=== PATIENT | male | born 1960 | race Caucasian/White ===

== ENCOUNTER → 2020-11-26 13:46 | Outpatient (CLI) | payer MEDICARE, SELFPAY ==
--- NOTE | 2020-11-26 13:57 | DI.RAD.S_ITS ---
PROCEDURE: XR ACUTE ABDOMEN SERIES INDICATIONS: abdominal pain (constipation) TECHNIQUE: One view chest and two views of the abdomen were acquired. COMPARISON: None. FINDINGS: Surgical changes and devices: None. Chest: Lungs are clear. Heart size is normal. No pleural effusions. No pneumoperitoneum. Abdomen: Moderate stool within the right colon; otherwise bowel is normal. No suspicious calcifications. Visualized solid organ contours appear normal. Bones: No suspicious bony lesions. IMPRESSION: No acute process seen within the chest or abdomen. Of note, there is a moderate amount of stool within the right colon. Dictated by: Mariano Gomez [facility] Interpreted: Joselin Dubon MD on 11/26/2020 at 16:48 Approved by: Joselin Dubon M.D. on 11/26/2020 at 17:06
== END ==
PROVIDERS: PCP Family Medicine; Referring Provider Registered Nurse; Visit Provider Registered Nurse
DX: R10.9 Unspecified abdominal pain (principal); K59.00 Constipation, unspecified
CPT/HCPCS: 74022

== ENCOUNTER → 2021-03-18 13:24 | Outpatient (CLI) | payer MEDICARE, SELFPAY ==
--- NOTE | 2021-03-18 13:27 | DI.RAD.S_ITS ---
PROCEDURE: XR ACUTE ABDOMEN SERIES INDICATIONS: abdominal pain TECHNIQUE: One view chest and two views of the abdomen were acquired. COMPARISON: [facility], , XR ACUTE ABDOMEN SERIES, 11/26/2020, 14:00. FINDINGS: Surgical changes and devices: None. Chest: Lungs are clear. Heart size is normal. No pleural effusions. No pneumoperitoneum. Abdomen: Bowel gas pattern is nonspecific. There are scattered small bowel fluid levels. No suspicious calcifications. Visualized solid organ contours appear normal. Bones: No suspicious bony lesions. IMPRESSION: Nonspecific gas pattern with scattered small bowel fluid levels. This could represent ileus. Developing partial small bowel obstruction cannot be excluded. Dictated by: Joselin Dubon M.D. on 03/18/2021 at 14:26 Approved by: Joselin Dubon M.D. on 03/18/2021 at 14:26
== END ==
PROVIDERS: PCP Family Medicine; Referring Provider Registered Nurse; Visit Provider Registered Nurse
DX: R10.9 Unspecified abdominal pain (principal); K59.00 Constipation, unspecified
CPT/HCPCS: 36415; 74022; 86003

== ENCOUNTER 2021-03-19 11:25 | Emergency (ER) | payer MEDICARE, SELFPAY ==
[2021-03-19 11:35] VITALS: BP 135/81; PULSE 96; RESP 18; TEMP 36.7; O2SAT 96; BMI 24.0
--- NOTE | 2021-03-19 11:42 | ED.ABDPAIN ---
HPI - Abdominal Pain General Chief Complaint: Abdominal Pain Stated Complaint: small bowel obstruction Time Seen by Provider: 03/19/21 11:29 Source: patient Mode of arrival: Ambulatory Limitations: no limitations History of Present Illness HPI narrative: 61M former smoker with history of abdominal cramps and prediabetes presents at the request of his PCP for evaluation of possible SBO. He has been having episodes of abdominal cramping particularly with eating for the past few months. He frequently will have loose stools and he states often times his cramping will build until he is able to have a bowel movement at which point improves. Additionally his pain, at least in the epigastrium is made worse with eating. He states that he has lost a taste for certain foods and very rarely drinks anymore as it just does not taste good. He has tried losing weight with some dietary changes but states that he has lost 30 lb in the past few months. He has had no fever or chills he denies any jaundice. Patient was seen by his primary care provider yesterday who did an acute abdominal series and sent him here for likely small bowel obstruction Related Data Home Medications Medication Instructions Recorded Confirmed amlodipine 10 mg tablet 10 mg PO DAILY 10/02/19 03/18/21 beclomethasone diprop (AQ) 42 mcg 1 spray NASAL DAILY PRN 10/02/19 03/18/21 (0.042 %) nasal spray bictegravir 50 mg-emtricitabine 1 tab PO DAILY 10/02/19 03/18/21 200 mg-tenofovir alafenam 25 mg tablet diphenhydramine HCl 25 mg capsule 25 mg PO BEDTIME 10/02/19 03/18/21 levothyroxine 137 mcg capsule 137 mcg PO DAILY 10/02/19 03/18/21 omeprazole 20 mg capsule,delayed 20 mg PO DAILY 10/02/19 03/18/21 release rosuvastatin 10 mg tablet 10 mg PO DAILY 10/02/19 03/18/21 Previous Rx's Medication Instructions Recorded lactulose 20 gram/30 mL oral 20 g PO BID PRN #1200 ml 11/27/20 solution ondansetron 4 mg PO TID-QID PRN #10 tab 03/19/21 Allergies Allergy/AdvReac Type Severity Reaction Status Date / Time No Known Drug Allergies Allergy Verified 11/26/20 13:29 Review of Systems Constitutional Constitutional: Denies chills, Denies fatigue, Denies fever(s), Denies frequent falls, Denies lethargy, Reports poor appetite and Denies weakness Eyes Eyes: Denies change in vision, Denies eye discharge, Denies irritation and Denies loss of vision ENT Ears, Nose, Mouth, and Throat: Denies change in voice, Denies dizziness, Denies neck pain, Denies sore throat and Denies throat swelling Cardiovascular Cardiovascular: Denies chest pain, Denies irregular heart rhythm, Denies lightheadedness, Denies palpitations, Denies dyspnea, Denies dyspnea on exertion and Denies orthopnea Respiratory Respiratory: Denies cough, Denies dyspnea, Denies dyspnea on exertion and Denies wheezing Gastrointestinal Gastrointestinal: Reports abdominal pain, Denies change in bowel habits, Reports diarrhea, Reports nausea and Denies vomiting Musculoskeletal Musculoskeletal: Denies neck pain and Denies numbness Integumentary/Breasts Skin/Breast: Denies pruritus, Denies erythema, Denies rash and Denies wounds Neurologic Neurologic: Denies behavioral changes, Denies confusion, Denies dizziness, Denies frequent falls, Denies loss of vision, Denies numbness and Denies weakness Psychiatric Psychiatric: Denies anxiety, Denies behavioral changes, Denies confusion, Denies depression, Denies homicidal ideation and Denies suicidal ideation Endocrine Endocrine: Denies fatigue, Denies flushing and Denies palpitations Hematologic/Lymphatic Hematologic/Lymphatic: Denies easy bruising Allergic/Immunologic Allergic/Immunologic: Denies urticaria, Denies throat swelling and Denies wheezing Patient History Medical History Abdominal cramps Bowel habit changes Prediabetes Vision disorder Surgical History Anesthesia Broken femur (~1965) Family History Father Cancer Mother Alzheimer's disease Brother Murder Social History Smoking Status: Former smoker Tobacco: How many years used: 50 alcohol intake: current (3-4 drinks every weekend ) Smoking Status: Former smoker Substance Use Type: does not use Exam Narrative Exam Narrative: GENERAL: [61] year old patient appears stated age. Well-developed patient, in mild distress. HEAD: Atraumatic. Normocephalic. EYES: Pupils equal round and reactive. Extraocular motions intact. No scleral icterus. No injection or drainage. ENT: Nose without bleeding, purulent drainage. Throat without erythema, tonsillar hypertrophy or exudate. Airway patent. NECK: Trachea midline. Non tender CARDIOVASCULAR: Regular rate and rhythm without murmurs, gallops, or rubs. RESPIRATORY: Clear to auscultation. Breath sounds equal bilaterally. No wheezes, rales, or rhonchi. GASTROINTESTINAL: Abdomen soft, mild epigastric pain reproducible on palpation, bowel sounds present in all 4 quadrants EXTREMITIES: No edema or joint tenderness. BACK: Nontender without deformity or crepitance. No flank tenderness. NEURO: AOx3. SKIN: No rash or erythema of visible areas Initial Vital Signs Initial Vital Signs: Vital Signs Temperature 98.0 F 03/19/21 11:35 Pulse Rate 96 H 03/19/21 11:35 Respiratory Rate 18 03/19/21 11:35 Blood Pressure 135/81 03/19/21 11:35 Pulse Oximetry 96 03/19/21 11:35 Course Orders Ordered: ED Orders 03/19/21 11:55 Complete Blood Count AUTO DIFF Stat Comprehensive Metabolic Panel Stat Lactate (Lactic Acid) Stat Lipase Stat 03/19/21 12:03 US abdomen limited Stat 03/19/21 12:04 COVID19 - ADMIT (ALCOHOL AND DRUG COUNSELOR swab/PCR) Stat 03/19/21 13:04 CT abdomen pelvis w con Stat Discontinued Medications Sodium Chloride (Normal Saline 0.9%) 1,000 mls @ 1,000 mls/hr IV BOLUS ONE Stop: 03/19/21 12:41 Last Infusion: 03/19/21 13:20 Dose: 0 mls/hr Documented by: Admin: 03/19/21 12:05 Dose: 1,000 mls/hr Documented by: ABBIE Vital Signs Vital signs: Vital Signs - 8 hr 03/19/21 11:35 03/19/21 14:00 03/19/21 14:30 Temperature 98.0 F Pulse Rate 96 H 91 H 96 H Respiratory Rate 18 24 23 Blood Pressure 135/81 121/75 122/74 Pulse Oximetry 96 99 98 MDM - Abdominal Pain Lab Data Result diagrams: 03/19/21 11:55 03/19/21 11:55 Labs: Lab Results 03/19/21 03/19/21 03/19/21 Range/Units 11:55 11:55 11:55 WBC 5.2 (4.5-11.0) X10^3/uL RBC 3.99 L (4.5-5.9) X10^6/uL Hgb 13.2 L (13.5-17.5) g/dL Hct 37.6 L (41-53) % MCV 94.2 (80-100) fL MCH 33.1 (26-34) PG MCHC 35.2 (30-36) % RDW 12.9 (11.6-14.8) % Plt Count 154 (150-400) X10^3/uL Neut % (Auto) 68.8 (50-75) % Lymph % (Auto) 20.0 L (25-40) % [place] % (Auto) 9.5 (3-14) % Eos % (Auto) 1.3 L (2-4) % Baso % (Auto) 0.4 (0-2) % Neut # (Auto) 3600 (5187-6679) /uL Lymph # (Auto) 1000 L (3839-0482) /uL [place] # (Auto) 500 (0-900) /uL Eos # (Auto) 100 (0-450) /uL Baso # (Auto) 0 (0-100) /uL Sodium 138 (137-145) mmol/L Potassium 3.5 (3.4-5.1) mmol/L Chloride 105 (98-107) mmol/L Carbon Dioxide 24 (22-32) mmol/L BUN 16 (9-20) mg/dL Creatinine 0.66 (0.66-1.25) mg/dL Estimated GFR > 60.0 (>60) mL/min BUN/Creatinine Ratio 24.2 H (6-22) Glucose 129 H (80-110) mg/dL Lactate 1.3 (0.7-2.1) mmol/L Calcium 9.8 (8.4-10.2) mg/dL Total Bilirubin 0.6 (0.2-1.3) mg/dL AST 31 (17-59) IU/L ALT 34 (<50) IU/L Alkaline Phosphatase 75 (38-126) U/L Total Protein 7.4 (6.3-8.2) g/dL Albumin 4.3 (3.5-5.0) g/dL Globulin 3.1 (1.7-4.1) g/dL Albumin/Globulin Ratio 1.4 (1.0-2.8) Lipase 763 H (23-300) U/L SARS-CoV-2 (PCR) (Negative) 03/19/21 Range/Units 12:04 WBC (4.5-11.0) X10^3/uL RBC (4.5-5.9) X10^6/uL Hgb (13.5-17.5) g/dL Hct (41-53) % MCV (80-100) fL MCH (26-34) PG MCHC (30-36) % RDW (11.6-14.8) % Plt Count (150-400) X10^3/uL Neut % (Auto) (50-75) % Lymph % (Auto) (25-40) % [place] % (Auto) (3-14) % Eos % (Auto) (2-4) % Baso % (Auto) (0-2) % Neut # (Auto) (9687-1079) /uL Lymph # (Auto) (3973-7317) /uL [place] # (Auto) (0-900) /uL Eos # (Auto) (0-450) /uL Baso # (Auto) (0-100) /uL Sodium (137-145) mmol/L Potassium (3.4-5.1) mmol/L Chloride (98-107) mmol/L Carbon Dioxide (22-32) mmol/L BUN (9-20) mg/dL Creatinine (0.66-1.25) mg/dL Estimated GFR (>60) mL/min BUN/Creatinine Ratio (6-22) Glucose (80-110) mg/dL Lactate (0.7-2.1) mmol/L Calcium (8.4-10.2) mg/dL Total Bilirubin (0.2-1.3) mg/dL AST (17-59) IU/L ALT (<50) IU/L Alkaline Phosphatase (38-126) U/L Total Protein (6.3-8.2) g/dL Albumin (3.5-5.0) g/dL Globulin (1.7-4.1) g/dL Albumin/Globulin Ratio (1.0-2.8) Lipase (23-300) U/L SARS-CoV-2 (PCR) Negative (Negative) Point of care testing: Urine Dip Bedside Urine Glucose Negative Bedside Urine Bilirubin - Negative Bedside Urine Ketone - Negative Urine Specific Hazel 1.030 Bedside Urine Occult Blood - Negative Bedside Urine pH 6 Bedside Urine Protein - Negative Bedside Urine Urobilinogen - Negative Bedside Urine Nitrite - Negative Bedside Urine Leukocytes - Negative Esterase Imaging Data US - abdomen: Radiologist's Impression: [address] [id number] ReportSigned Patient: Jarrett Inman EMR#: [id number]: 8Acct:[id number]/Sex: 61 / MDate of Service: 03/19/21Loc: EDAccession Number: [id number] Procedure: US abdomen limited Ordering Provider: Vipul Miles D.O. PROCEDURE: US ABDOMEN LIMITED INDICATIONS: RUQ PAIN TECHNIQUE: Real-time focused scanning was performed of the abdomen, with image documentation. COMPARISON: Abdominal ultrasound 08/10/16.. FINDINGS: The liver is 15.3 cm in length and normal in echotexture. The gallbladder is stone filled, with wall measuring 2.7 mm in maximal thickness and without adjacent pericholecystic free fluid or sonographic Martinez sign. There is no intrahepatic biliary distension but the common bile duct is abnormally dilated at 10.9 mm, with a 4.2 mm lumen and the remainder of this measure and representing common duct wall thickening. A slight amount of free fluid is seen at the upper anterior liver margin. The pancreas demonstrates a 4 x 7 x 8 mm presume pseudocyst at the pancreatic body. IMPRESSION: Stone filled gallbladder, no intrahepatic biliary distension found. This appearance likely represents evidence of recent passage of a stone or cholangitis. The likelihood of fusiform wall thickening being a manifestation of malignancy is considered low. The presence of numerous stones filling the gallbladder lumen increases risk of biliary colic and cholangitis. Surgical consultation may be warranted. Follow-up ultrasound assessment of the distal common duct is recommended in 6 weeks to establish presence or absence of persistence of the common duct abnormal mural thickening. Dictated by: Francesco Abdi M.D. on 03/19/2021 at 13:03 Approved by: Francesco Abdi M.D. on 03/19/2021 at 13:08 CT scan - abdomen/pelvis: Radiologist's Impression: Jarrett Inman M 1960 [address] [id number] Scan ReportSigned Patient: Jarrett Inman EMR#: [id number]: 1960cct:[id number]/Sex: 61 / MDate of Service: 03/19/21Loc: EDAccession Number: [id number] Procedure: CT abdomen pelvis w con Ordering Provider: Vipul Miles D.O. PROCEDURE: CT ABDOMEN PELVIS W CON INDICATIONS: severe pain after eating, 30 lb weight loss, vomiting, diarrhea TECHNIQUE: After the administration of intravenous contrast, 5 mm thick sections acquired from the diaphragm to the symphysis. 5 mm coronal and sagittal reformats were acquired. For radiation dose reduction, the following was used: automated exposure control, adjustment of mA and/or kV according to patient size. COMPARISON: [facility], , ABDOMEN LIMITED, 03/19/2021, 12:22. FINDINGS: Image quality: Excellent. ABDOMEN: Lung bases: Lung bases are clear. Heart size is normal. Solid organs: Liver is normal in size and enhancement. Calcification adjacent to the dome of the liver. Gallbladder is decompressed. Small calcified gallstones are seen. Biliary system is non dilated. Abnormal soft tissue posterior to the pancreas. Mild hypoenhancement of than sent process. No pancreatic ductal dilatation. Trace retroperitoneal fluid. Tiny cyst in the body of the pancreas measuring 0.7 x 0.5 cm, (3/). Spleen is normal in size and enhancement. No adrenal nodules. Kidneys demonstrate normal size and enhancement, without hydronephrosis. Left kidney superior pole cyst measuring at 4.2 cm and 33 Hounsfield units. Indeterminate. Peritoneum and bowel: No small bowel obstruction. There is suspected thickening of the colon. Diverticulosis. No diverticulitis. Trace free fluid adjacent to the spleen. No pneumoperitoneum. Nodes and vessels: Abnormal hypoenhancing thickening in the upper abdomen retroperitoneum. There is severe narrowing of the portal vein near the confluence, (3/). There is encasement of the celiac artery and and SMA. The right hepatic artery is replaced to the SMA and appears narrowed. Abutment of the left renal artery. Prominent mesenteric lymph nodes. Aorta and inferior vena cava are normal in size. Moderate calcified atherosclerotic plaque. Miscellaneous: No ventral hernias. PELVIS: Genitourinary: Bladder is distended. Prostatomegaly. Prostate calcifications. Miscellaneous: No inguinal hernias or adenopathy. Bones: No suspicious bony lesions. Moderate DDD. No vertebral body compression fractures. IMPRESSION: 1. Extensive abnormal hypoenhancing thickening in the retroperitoneum posterior to the pancreas. There is narrowing of the portal vein and right hepatic artery. There is extensive vascular encasement. Hypoenhancement at the uncinate process of the pancreas. Suspect pancreatic adenocarcinoma. 2. No pancreatic or biliary ductal dilatation. 3. Gallbladder is decompressed. Small gallstones. 4. Trace free fluid. 5. Small cyst in the body of the pancreas. 6. Suspect of colonic wall thickening. Diverticulosis. No diverticulitis. Comment: Preliminary findings were discussed with Dr. Vipul Miles at the time of dictation. Dictated by: Nik Baxter M.D. on 03/19/2021 at 13:46 Approved by: Nik Baxter M.D. on 03/19/2021 at 14:08 MDM Narrative Medical decision making narrative: Patient with unexplained weight loss of 30 lb, epigastric pain worse with eating and 1 other vague generalized bowel issues over the past few months has pain well controlled, tolerating clear liquids and imaging to suggest probable all mass at the head of the pancreas. I have discussed this case with the patient's primary care provider or will assume care and arrange for the necessary evaluations and referrals to get to the bottom of this unfortunate diagnosis. Patient and spouse understand and agree with the diagnosis and plan. They have been given return precautions and have had questions answered to their apparent satisfaction Discharge Plan Departure Patient Disposition: Home Clinical Impression: Mass of pancreas Instructions: DI for Pancreaticobiliary Cancer Activity Restrictions/Additional Instructions: *You have been diagnosed with [labs, unexplained weight loss, and imaging are concerning for pancreatic cancer.] *What to do: *Please continue to take your regular medications as directed. [ ] New medication prescriptions sent to your pharmacy: [ ] [ x] New medication written as a paper prescription [ ] No new medications given * please call Dr. Estrada is office for follow-up appointment. I called him today to give him your story and he states he will take it from here. You will likely need referrals to general surgery and possibly GI to help obtain a specific diagnosis and then further decisions will be made at that point * it would be reasonable to consider a clear liquid diet for the next 24-48 hours and then advance as tolerated *Return to Emergency Department if you should have any new, worsening or concerning symptoms, such as [fever greater than 101 F, shaking chills, worsening pain, persistent vomiting or other bothersome symptoms] Prescriptions: New ondansetron 4 mg tablet,disintegrating 4 mg PO TID-QID PRN (Reason: nausea and vomiting) Qty: 10 RF: 0 No Action lactulose 20 gram/30 mL solution 20 g PO BID PRN (Reason: constipation) Qty: 1200 RF: 0 Biktarvy 50-200-25 mg tablet 1 tab PO DAILY RF: 0 amlodipine 10 mg tablet 10 mg PO DAILY RF: 0 levothyroxine 137 mcg capsule 137 mcg PO DAILY RF: 0 rosuvastatin 10 mg tablet 10 mg PO DAILY RF: 0 omeprazole 20 mg capsule,delayed release(DR/EC) 20 mg PO DAILY RF: 0 diphenhydramine HCl [Benadryl] 25 mg capsule 25 mg PO BEDTIME RF: 0 Beconase AQ 42 mcg (0.042 %) spray,non-aerosol 1 spray NASAL DAILY PRNRF: 0 Referrals: Daquan Estrada DO [Primary Care Provider] -
[2021-03-19 11:59] LABS: Add Manual Diff / Slide Review NO; Basophils Absolute Auto 0 /uL (0-100); Basophils Percent Auto 0.4 % (0-2); Eosinophils Absolute Auto 100 /uL (0-450); Eosinophils Percent Auto 1.3 % (2-4); Hematocrit 37.6 % (41-53); Hemoglobin 13.2 g/dL (13.5-17.5); Lymphocytes Absolute Auto 1000 /uL (1100-4500); Mean Corpuscular HGB Conc 35.2 % (30-36); Mean Corpuscular Hemoglobin 33.1 PG (26-34); Mean Corpuscular Volume 94.2 fL (80-100); Monocytes Absolute Auto 500 /uL (0-900); Monocytes Percent Auto 9.5 % (3-14); Neutrophils Absolute Auto 3600 /uL (1500-7000); Neutrophils Percent Auto 68.8 % (50-75); Platelet Count 154 X10^3/uL (150-400); Red Blood Cell Count 3.99 X10^6/uL (4.5-5.9); Red Cell Distribution Width 12.9 % (11.6-14.8); White Blood Cell Count 5.2 X10^3/uL (4.5-11.0)
--- NOTE | 2021-03-19 12:03 | DI.US.S_ITS ---
PROCEDURE: US ABDOMEN LIMITED INDICATIONS: RUQ PAIN TECHNIQUE: Real-time focused scanning was performed of the abdomen, with image documentation. COMPARISON: Abdominal ultrasound 08/10/16.. FINDINGS: The liver is 15.3 cm in length and normal in echotexture. The gallbladder is stone filled, with wall measuring 2.7 mm in maximal thickness and without adjacent pericholecystic free fluid or sonographic Martinez sign. There is no intrahepatic biliary distension but the common bile duct is abnormally dilated at 10.9 mm, with a 4.2 mm lumen and the remainder of this measure and representing common duct wall thickening. A slight amount of free fluid is seen at the upper anterior liver margin. The pancreas demonstrates a 4 x 7 x 8 mm presume pseudocyst at the pancreatic body. IMPRESSION: Stone filled gallbladder, no intrahepatic biliary distension found. This appearance likely represents evidence of recent passage of a stone or cholangitis. The likelihood of fusiform wall thickening being a manifestation of malignancy is considered low. The presence of numerous stones filling the gallbladder lumen increases risk of biliary colic and cholangitis. Surgical consultation may be warranted. Follow-up ultrasound assessment of the distal common duct is recommended in 6 weeks to establish presence or absence of persistence of the common duct abnormal mural thickening. Dictated by: Francesco Abdi M.D. on 03/19/2021 at 13:03 Approved by: Francesco Abdi M.D. on 03/19/2021 at 13:08
[2021-03-19] MEDS: SODIUM CHLORIDE 0.9% 1,000 ML 1000 ML IV (12:05)
[2021-03-19 12:13] LABS: Alanine Aminotransferase 34 IU/L (<50); Albumin 4.3 g/dL (3.5-5.0); Albumin Globulin Ratio 1.4 (1.0-2.8); Alkaline Phosphatase 75 U/L (38-126); Aspartate Aminotransferase 31 IU/L (17-59); BUN Creatinine Ratio 24.2 (6-22); Bilirubin Total 0.6 mg/dL (0.2-1.3); Blood Urea Nitrogen 16 mg/dL (9-20); Calcium 9.8 mg/dL (8.4-10.2); Carbon Dioxide 24 mmol/L (22-32); Chloride 105 mmol/L (98-107); Estimated Glomerular Filt Rate > 60.0 mL/min (>60); Globulin 3.1 g/dL (1.7-4.1); Glucose 129 mg/dL (80-110); HEMOLYSIS < 15 (0-50); Lactate (Lactic Acid) 1.3 mmol/L (0.7-2.1); Lipase 763 U/L (23-300); Potassium 3.5 mmol/L (3.4-5.1); Sodium 138 mmol/L (137-145); Total Protein 7.4 g/dL (6.3-8.2)
--- NOTE | 2021-03-19 13:04 | DI.CT.S_ITS ---
PROCEDURE: CT ABDOMEN PELVIS W CON INDICATIONS: severe pain after eating, 30 lb weight loss, vomiting, diarrhea TECHNIQUE: After the administration of intravenous contrast, 5 mm thick sections acquired from the diaphragm to the symphysis. 5 mm coronal and sagittal reformats were acquired. For radiation dose reduction, the following was used: automated exposure control, adjustment of mA and/or kV according to patient size. COMPARISON: [facility], , US ABDOMEN LIMITED, 03/19/2021, 12:22. FINDINGS: Image quality: Excellent. ABDOMEN: Lung bases: Lung bases are clear. Heart size is normal. Solid organs: Liver is normal in size and enhancement. Calcification adjacent to the dome of the liver. Gallbladder is decompressed. Small calcified gallstones are seen. Biliary system is non dilated. Abnormal soft tissue posterior to the pancreas. Mild hypoenhancement of than sent process. No pancreatic ductal dilatation. Trace retroperitoneal fluid. Tiny cyst in the body of the pancreas measuring 0.7 x 0.5 cm, (3/). Spleen is normal in size and enhancement. No adrenal nodules. Kidneys demonstrate normal size and enhancement, without hydronephrosis. Left kidney superior pole cyst measuring at 4.2 cm and 33 Hounsfield units. Indeterminate. Peritoneum and bowel: No small bowel obstruction. There is suspected thickening of the colon. Diverticulosis. No diverticulitis. Trace free fluid adjacent to the spleen. No pneumoperitoneum. Nodes and vessels: Abnormal hypoenhancing thickening in the upper abdomen retroperitoneum. There is severe narrowing of the portal vein near the confluence, (3/21). There is encasement of the celiac artery and and SMA. The right hepatic artery is replaced to the SMA and appears narrowed. Abutment of the left renal artery. Prominent mesenteric lymph nodes. Aorta and inferior vena cava are normal in size. Moderate calcified atherosclerotic plaque. Miscellaneous: No ventral hernias. PELVIS: Genitourinary: Bladder is distended. Prostatomegaly. Prostate calcifications. Miscellaneous: No inguinal hernias or adenopathy. Bones: No suspicious bony lesions. Moderate DDD. No vertebral body compression fractures. IMPRESSION: 1. Extensive abnormal hypoenhancing thickening in the retroperitoneum posterior to the pancreas. There is narrowing of the portal vein and right hepatic artery. There is extensive vascular encasement. Hypoenhancement at the uncinate process of the pancreas. Suspect pancreatic adenocarcinoma. 2. No pancreatic or biliary ductal dilatation. 3. Gallbladder is decompressed. Small gallstones. 4. Trace free fluid. 5. Small cyst in the body of the pancreas. 6. Suspect of colonic wall thickening. Diverticulosis. No diverticulitis. Comment: Preliminary findings were discussed with Dr. Vipul Miles at the time of dictation. Dictated by: Nik Baxter M.D. on 03/19/2021 at 13:46 Approved by: Nik Baxter M.D. on 03/19/2021 at 14:08
[2021-03-19 13:10] LABS: COVID19 - ADMIT (NP swab/PCR) Negative (Negative)
[2021-03-19 14:00] VITALS: BP 121/75; PULSE 91; RESP 24; O2SAT 99
[2021-03-19 14:30] VITALS: BP 122/74; PULSE 96; RESP 23; O2SAT 98
== END 2021-03-19 15:03 | disposition home or self-care (01) ==
PROVIDERS: Emergency Provider Emergency Medicine; PCP Family Medicine
DX: K86.89 Other specified diseases of pancreas (principal); Z20.822 Contact with and (suspected) exposure to COVID-19
CPT/HCPCS: 36415; 74177; 76705; 80053; 81003; 83605; 83690; 85025; 87635; 96360; 99284; C9803

== ENCOUNTER → 2021-04-09 10:01 | Outpatient (CLI) | payer MEDICARE, SELFPAY ==
[2021-04-09 12:01] LABS: COVID19 - ADMIT (NP swab/PCR) Negative (Negative)
== END ==
PROVIDERS: PCP Family Medicine; Visit Provider Student in an Organized Health Care Education/Training Program
DX: Z01.812 Encounter for preprocedural laboratory examination (principal); Z20.822 Contact with and (suspected) exposure to COVID-19
CPT/HCPCS: C9803; U0003

== ENCOUNTER 2021-04-15 14:19 | Emergency (ER) | payer MEDICARE, SELFPAY ==
[2021-04-15 14:40] VITALS: BP 115/72; PULSE 106; RESP 20; TEMP 36.6; O2SAT 97
--- NOTE | 2021-04-15 14:54 | ED.GENADULT ---
HPI - General Adult General Chief complaint: Abdominal Pain Stated complaint: possible perf of stint post op. sent by [facility] Time Seen by Provider: 04/15/21 14:32 Source: patient Mode of arrival: Ambulatory History of Present Illness HPI narrative: 61-year-old gentleman HIV positive with undetectable viral levels recently diagnosed pancreatic mass presumed metastatic pancreatic cancer presents 5 days after his ERCP, biliary stent placement and celiac plexus injection for pain control. Apparently he had a CT scan done immediately after the procedure that showed a questionable amount of retroperitoneal air in question for postprocedure perforation. He was called today and they requested that he have further evaluation. He comes in as requested but has no worsening pain symptoms, no fevers, no cough, he does continue to complain of quite a bit of gas with both increased belching and flatulence. He is finding that his 5 mg of oxycodone that can be used every 4 hours is not as effective as it had been previously and unfortunately the celiac plexus block does not seem to have influenced his pain much. He is not lightheaded, he is not having chest pain he has no subcutaneous air and has otherwise been feeling at his baseline after the procedure on April 11. Related Data Home Medications Medication Instructions Recorded Confirmed amlodipine 10 mg tablet 10 mg PO DAILY 10/02/19 03/26/21 beclomethasone diprop (AQ) 42 mcg 1 spray NASAL DAILY PRN 10/02/19 03/26/21 (0.042 %) nasal spray (Beconase AQ) bictegravir 50 mg-emtricitabine 1 tab PO DAILY 10/02/19 03/26/21 200 mg-tenofovir alafenam 25 mg tablet (Biktarvy) diphenhydramine HCl 25 mg capsule 25 mg PO BEDTIME 10/02/19 03/26/21 (Benadryl) levothyroxine 137 mcg capsule 137 mcg PO DAILY 10/02/19 03/26/21 omeprazole 20 mg capsule,delayed 20 mg PO DAILY 10/02/19 03/26/21 release rosuvastatin 10 mg tablet 10 mg PO DAILY 10/02/19 03/26/21 Previous Rx's Medication Instructions Recorded lactulose 20 gram/30 mL oral 20 g PO BID PRN #1200 ml 11/27/20 solution ondansetron 4 mg disintegrating 4 mg PO TID-QID PRN #10 tab 03/19/21 tablet zolpidem 5 mg tablet 5 mg PO BEDTIME PRN #30 tab 03/26/21 morphine 30 mg capsule,extended 30 mg PO DAILY #30 cap 04/15/21 release 24 hr multiphase naloxone 4 mg/actuation nasal 4 mg INTRANASAL Q2M PRN #2 ea 04/15/21 spray (Narcan) Allergies Allergy/AdvReac Type Severity Reaction Status Date / Time No Known Drug Allergies Allergy Verified 03/26/21 10:24 Review of Systems Review of Systems Narrative: Remainder of complete review of systems is otherwise unremarkable except for that included in the HPI. Patient History Medical History HIV antibody positive (~1991) HTN (hypertension) Hyperlipidemia Hypothyroid (~1998) Mass of pancreas Prediabetes Vision disorder Surgical History Anesthesia Broken femur (~1964) Family History Father Cancer Mother Alzheimer's disease Brother Murder Social History marital status: household members: spouse occupational status: previously employed Smoking Status: Former smoker Tobacco: How many years used: 50 alcohol intake: current substance use type: does not use Smoking Status: Former smoker Substance Use Type: does not use Exam Narrative Exam Narrative: General: Healthy appearing, in no acute distress. Able to give a complete and coherent history. Thin but well-developed HEENT: Moist mucous membranes, normal sclera with reactive pupils, Neck: No JVD, supple, no subcutaneous air or crepitance Respiratory: Lungs are clear to auscultation, no wheezing no rales no rhonchi. Full and symmetrical air movement Cardiac: Regular rate and rhythm no murmurs no bruits Abdomen: Soft, mild mid abdominal/pancreatic head tenderness without rebound or guarding, good bowel tones, no flank pain Skin: Warm and dry, no rashes Neurologic: Grossly neurologically intact with no obvious asymmetries or abnormalities Extremities: No trauma, well perfused Psych: Cooperative, appropriate insight and affect Initial Vital Signs Initial Vital Signs: Vital Signs Temperature 97.9 F 04/15/21 14:40 Pulse Rate 106 H 04/15/21 14:40 Respiratory Rate 20 04/15/21 14:40 Blood Pressure 115/72 04/15/21 14:40 Pulse Oximetry 97 04/15/21 14:40 Course Orders Ordered: ED Orders 04/15/21 14:49 Complete Blood Count AUTO DIFF Stat Comprehensive Metabolic Panel Stat Lipase Stat 04/15/21 15:21 XR abdomen min 2V Stat XR chest 2V Stat Vital Signs Vital signs: Vital Signs - 8 hr 04/15/21 14:40 Temperature 97.9 F Pulse Rate 106 H Respiratory Rate 20 Blood Pressure 115/72 Pulse Oximetry 97 Medical Decision Making Lab Data Result diagrams: 04/15/21 14:49 04/15/21 14:49 Labs: Lab Results 04/15/21 04/15/21 04/15/21 Range/Units 14:49 14:49 14:49 WBC 5.2 (4.5-11.0) X10^3/uL RBC 3.91 L (4.5-5.9) X10^6/uL Hgb 12.8 L (13.5-17.5) g/dL Hct 36.9 L (41-53) % MCV 94.2 (80-100) fL MCH 32.7 (26-34) PG MCHC 34.7 (30-36) % RDW 13.0 (11.6-14.8) % Plt Count 154 (150-400) X10^3/uL Neut % (Auto) 55.7 (50-75) % Lymph % (Auto) 28.2 (25-40) % [place] % (Auto) 11.8 (3-14) % Eos % (Auto) 3.7 (2-4) % Baso % (Auto) 0.6 (0-2) % Neut # (Auto) 2900 (7247-4151) /uL Lymph # (Auto) 1500 (0584-3299) /uL [place] # (Auto) 600 (0-900) /uL Eos # (Auto) 200 (0-450) /uL Baso # (Auto) 0 (0-100) /uL Sodium 139 (137-145) mmol/L Potassium 3.8 (3.4-5.1) mmol/L Chloride 105 (98-107) mmol/L Carbon Dioxide 23 (22-32) mmol/L BUN 16 (9-20) mg/dL Creatinine 0.69 (0.66-1.25) mg/dL Estimated GFR > 60.0 (>60) mL/min BUN/Creatinine Ratio 23.2 H (6-22) Glucose 106 (80-110) mg/dL Calcium 9.3 (8.4-10.2) mg/dL Total Bilirubin 0.7 (0.2-1.3) mg/dL AST 48 (17-59) IU/L ALT 71 H (<50) IU/L Alkaline Phosphatase 79 (38-126) U/L Total Protein 7.3 (6.3-8.2) g/dL Albumin 4.2 (3.5-5.0) g/dL Globulin 3.1 (1.7-4.1) g/dL Albumin/Globulin Ratio 1.4 (1.0-2.8) Lipase 712 H (23-300) U/L Imaging Data XR abd: Radiologist's Impression: FINDINGS: Surgical changes and devices: None. Bowel: No pneumoperitoneum. The bowel gas pattern demonstrates mild prominence of bowel loops. Right colonic stool is present. Soft tissues: No masses; visualized solid organ contours appear normal in size. No suspicious abdominal calcifications. There is interval appearance of a 3.9 cm focus of increased density overlying the right upper quadrant, not present on CT of 03/19/21. Presumed biliary stent/drain is noted. Bones: No suspicious bony abnormalities. IMPRESSION: 1. Colonic stool with mild prominence of dilated bowel loops. Overall appearance is nonspecific although ileus cannot be excluded. 2. Interval appearance of increased density overlying the region of the gallbladder with biliary stent/drain. High density may represent contrast or other material from recent iatrogenic procedure, as it is not present on CT exam of 03/19/2021. Recommend clinical correlation. Dictated by: Joselin Dubon M.D. on 04/15/2021 at 16:01 MDM Narrative Medical decision making narrative: 61-year-old gentleman 5 days post ERCP, and celiac plexus ablation with concerns that there may have been a postprocedure perforation. He is feeling well, no evidence of clinical infection or worsening pain, no elevated white count noted change to lipase levels and abdominal and chest x-rays do not suggest any free air. He is complaining of increased gas and I think that helping with that of constipation will probably help relieve some of his gas symptoms. Care is reviewed with Dr. White, his physician at the [facility] who agrees with discharge home and will contact the patient later this evening. Discharge Plan Departure Patient Disposition: Home Clinical Impression: Mass of pancreas, Cancer related pain Constipation Qualifiers: Constipation type: drug induced constipation Qualified Code(s): K59.03 - Drug induced constipation Instructions: DI for Constipation Activity Restrictions/Additional Instructions: Thank you for coming in today I am sorry this has been such a frustrating experience for you. I am encouraged that your x-rays and exam as well as blood work from today do not suggest significant perforation or complications from a perforation after your procedure on Wednesday. For pain control you may consider adding extended release morphine daily to see if this gives you better overall pain control and still leaves you the option of using the 5 mg oxycodone that you have at home on an as-needed basis. I have given you a prescription to try. If you find that it is not effective for you do not like it you certainly do not need to continue. Any time that you are on chronic narcotics having Narcan available at home is a good idea. Make sure that your partner is aware of the Narcan and had a use it (it is squirted up your nose and should come with instructions). The time to use it would be if you are too sleepy or not breathing after taking narcotic pain medication. Chronic narcotic use will cause constipation. Using MiraLax daily can help prevent this. MiraLax/polyethylene glycol is qisk-wug-yabkujh and the starting dose is 1 cap full of the powder dissolved in a large glass of water or coffee or tea at least daily. This keep her stool soft. If you are continuing to have hard stools and difficulty with constipation you can increase the dose of the MiraLax as needed. You cannot overdose on MiraLax For gas pain, irregular bowel movements are the most helpful. You can also try Gas-X/simethicone, also aygq-juf-quzzrsa. This breakdown be gas bubbles to smaller gas bubbles and sometimes makes some easier to pass. Prescriptions: New morphine 30 mg capsule, ER multiphase 24 hr 30 mg PO DAILY Qty: 30 RF: 0 Narcan 4 mg/actuation spray,non-aerosol 4 mg intranasal Q2M PRN (Reason: opioid overdose) Qty: 2 RF: 0 No Action lactulose 20 gram/30 mL solution 20 g PO BID PRN (Reason: constipation) Qty: 1200 RF: 0 zolpidem 5 mg tablet 5 mg PO BEDTIME PRN (Reason: sleep) Qty: 30 RF: 1 Biktarvy 50-200-25 mg tablet 1 tab PO DAILY RF: 0 amlodipine 10 mg tablet 10 mg PO DAILY RF: 0 levothyroxine 137 mcg capsule 137 mcg PO DAILY RF: 0 rosuvastatin 10 mg tablet 10 mg PO DAILY RF: 0 omeprazole 20 mg capsule,delayed release(DR/EC) 20 mg PO DAILY RF: 0 diphenhydramine HCl [Benadryl] 25 mg capsule 25 mg PO BEDTIME RF: 0 Beconase AQ 42 mcg (0.042 %) spray,non-aerosol 1 spray NASAL DAILY PRNRF: 0 ondansetron 4 mg tablet,disintegrating 4 mg PO TID-QID PRN (Reason: nausea and vomiting) Qty: 10 RF: 0 Referrals: Daquan Estrada DO [Primary Care Provider] -
[2021-04-15 14:59] LABS: Add Manual Diff / Slide Review NO; Basophils Absolute Auto 0 /uL (0-100); Basophils Percent Auto 0.6 % (0-2); Eosinophils Absolute Auto 200 /uL (0-450); Eosinophils Percent Auto 3.7 % (2-4); Hematocrit 36.9 % (41-53); Hemoglobin 12.8 g/dL (13.5-17.5); Lymphocytes Absolute Auto 1500 /uL (1100-4500); Lymphocytes Percent Auto 28.2 % (25-40); Mean Corpuscular HGB Conc 34.7 % (30-36); Mean Corpuscular Hemoglobin 32.7 PG (26-34); Mean Corpuscular Volume 94.2 fL (80-100); Monocytes Absolute Auto 600 /uL (0-900); Monocytes Percent Auto 11.8 % (3-14); Neutrophils Absolute Auto 2900 /uL (1500-7000); Neutrophils Percent Auto 55.7 % (50-75); Platelet Count 154 X10^3/uL (150-400); Red Blood Cell Count 3.91 X10^6/uL (4.5-5.9); White Blood Cell Count 5.2 X10^3/uL (4.5-11.0)
[2021-04-15 15:11] LABS: Alanine Aminotransferase 71 IU/L (<50); Albumin 4.2 g/dL (3.5-5.0); Albumin Globulin Ratio 1.4 (1.0-2.8); Alkaline Phosphatase 79 U/L (38-126); Aspartate Aminotransferase 48 IU/L (17-59); BUN Creatinine Ratio 23.2 (6-22); Bilirubin Total 0.7 mg/dL (0.2-1.3); Blood Urea Nitrogen 16 mg/dL (9-20); Calcium 9.3 mg/dL (8.4-10.2); Carbon Dioxide 23 mmol/L (22-32); Chloride 105 mmol/L (98-107); Estimated Glomerular Filt Rate > 60.0 mL/min (>60); Globulin 3.1 g/dL (1.7-4.1); Glucose 106 mg/dL (80-110); HEMOLYSIS < 15 (0-50); Lipase 712 U/L (23-300); Potassium 3.8 mmol/L (3.4-5.1); Sodium 139 mmol/L (137-145); Total Protein 7.3 g/dL (6.3-8.2)
--- NOTE | 2021-04-15 15:21 | DI.RAD.S_ITS ---
PROCEDURE: XR CHEST 2V INDICATIONS: ? perforation after ERCP on 04/11 TECHNIQUE: 2 views of the chest were acquired. COMPARISON: [facility], CT, CT ABDOMEN PELVIS W CON, 03/19/2021, 13:37. FINDINGS: Surgical changes and devices: None. Lungs and pleura: Lungs are clear. No pleural effusions or pneumothorax. Mediastinum: Mediastinal contours are normal. Heart size is normal. Bones and chest wall: No suspicious bony abnormalities. Soft tissues appear unremarkable. Miscellaneous: Increased density overlying the region of the gallbladder, new compared to prior exam. Biliary drain/stent is noted. IMPRESSION: 1. No free air. 2. Interval appearance of increased density overlying the gallbladder since prior exam as well as biliary stent/strain. High density focus may be secondary to contrast or other material secondary to recent iatrogenic procedure. Clinical correlation is recommended. Dictated by: Joselin Dubon M.D. on 04/15/2021 at 16:04 Approved by: Joselin Dubon M.D. on 04/15/2021 at 16:05
--- NOTE | 2021-04-15 15:21 | DI.RAD.S_ITS ---
PROCEDURE: XR ABDOMEN MIN 2V INDICATIONS: ?perf after ECP on 04/11 TECHNIQUE: 2 views of the abdomen were acquired. COMPARISON: [facility], CR, XR CHEST 2V, 04/15/2021, 15:32. [facility], CT, CT ABDOMEN PELVIS W CON, 03/19/2021, 13:37. FINDINGS: Surgical changes and devices: None. Bowel: No pneumoperitoneum. The bowel gas pattern demonstrates mild prominence of bowel loops. Right colonic stool is present. Soft tissues: No masses; visualized solid organ contours appear normal in size. No suspicious abdominal calcifications. There is interval appearance of a 3.9 cm focus of increased density overlying the right upper quadrant, not present on CT of 03/19/21. Presumed biliary stent/drain is noted. Bones: No suspicious bony abnormalities. IMPRESSION: 1. Colonic stool with mild prominence of dilated bowel loops. Overall appearance is nonspecific although ileus cannot be excluded. 2. Interval appearance of increased density overlying the region of the gallbladder with biliary stent/drain. High density may represent contrast or other material from recent iatrogenic procedure, as it is not present on CT exam of 03/19/2021. Recommend clinical correlation. Dictated by: Joselin Dubon M.D. on 04/15/2021 at 16:01 Approved by: Joselin Dubon M.D. on 04/15/2021 at 16:04
[2021-04-15 16:40] VITALS: BP 116/70; PULSE 98; RESP 16; O2SAT 99
== END 2021-04-15 16:40 | disposition home or self-care (01) ==
PROVIDERS: Emergency Medicine; Emergency Provider Emergency Medicine; PCP Family Medicine
DX: K59.03 Drug induced constipation (principal); T40.2X5A Adverse effect of other opioids, initial encounter; K86.89 Other specified diseases of pancreas; R10.12 Left upper quadrant pain; R14.3 Flatulence; B20 Human immunodeficiency virus [HIV] disease
CPT/HCPCS: 71046; 74019; 80053; 83690; 85025; 99281; 99284

== ENCOUNTER → 2021-05-19 11:03 | Outpatient (CLI) | payer MEDICARE, SELFPAY ==
[2021-05-19 12:54] LABS: COVID-19 CEPHEID PCR (VTM/NP) Negative (Negative)
== END ==
PROVIDERS: PCP Family Medicine; Visit Provider Nurse Practitioner
DX: Z20.822 Contact with and (suspected) exposure to COVID-19 (principal)
CPT/HCPCS: C9803; U0003

== ENCOUNTER → 2021-07-02 09:18 | Outpatient (CLI) | payer MEDICARE, SELFPAY ==
[2021-07-02 12:02] LABS: COVID-19 CEPHEID PCR (VTM/NP) Negative (Negative)
== END ==
PROVIDERS: PCP Family Medicine; Visit Provider Physician Assistant
DX: Z20.822 Contact with and (suspected) exposure to COVID-19 (principal)
CPT/HCPCS: C9803; U0003

== ENCOUNTER → 2022-02-13 09:25 | Outpatient (CLI) | payer MEDICARE, SELFPAY ==
[2022-02-13 11:20] LABS: COVID19 -Nasal RAPID Negative (Negative)
== END ==
PROVIDERS: PCP Family Medicine; Visit Provider Family Medicine Sleep Medicine
DX: Z20.822 Contact with and (suspected) exposure to COVID-19 (principal)
CPT/HCPCS: 87635; C9803

== ENCOUNTER 2022-02-16 07:02 | Day surgery (SDC) | payer MEDICARE, SELFPAY ==
[2022-02-16 07:31] VITALS: BP 128/76; PULSE 89; RESP 16; TEMP 36.1; O2SAT 98; BMI 25.7
[2022-02-16] MEDS: SODIUM CHLORIDE 0.9% 1,000 ML 84 ML IV (07:46)
--- NOTE | 2022-02-16 08:00 | PM.HP.1 ---
History of Present Illness History of Present Illness Date Patient Seen: 02/16/22 Time Patient Seen: 08:01 Chief complaint: SDC Narrative: Here for colon cancer screening. Reports a personal history of colon polyps 5 years ago. Patient History Medical History Dyspepsia HIV antibody positive (~1991) HTN (hypertension) Hyperlipidemia Hypothyroid (~1998) Mass of pancreas Pancreatic cancer Prediabetes Vision disorder Well adult exam Surgical History Anesthesia Broken femur (~1964) Family & Social History Family History Father Cancer Mother Alzheimer's disease Brother Murder Social History: household members spouse Tobacco & Substance use: Smoking Status Former smoker alcohol intake current alcohol intake frequency a few times a week Substance Use Type does not use Meds Home Medications and Allergies Home Medications Medication Instructions Recorded Confirmed Type bictegravir 50 mg-emtricitabine 1 tab PO DAILY 10/02/19 02/16/22 History 200 mg-tenofovir alafenam 25 mg tablet (Biktarvy) levothyroxine 137 mcg capsule 137 mcg PO DAILY 10/02/19 02/16/22 History omeprazole 20 mg capsule,delayed 20 mg PO DAILY 10/02/19 02/16/22 History release ondansetron 4 mg disintegrating 4 mg PO TID-QID PRN #10 tab 03/19/21 02/16/22 Rx tablet zolpidem 5 mg tablet 5 mg PO BEDTIME PRN #30 tab 03/26/21 02/16/22 Rx methylphenidate HCl 5 mg tablet 5 mg PO DAILY 01/09/22 02/16/22 History opium tincture 10 mg/mL (morphine) 10 mg PO DAILY 01/09/22 02/16/22 History oral syringe (FOR ORAL USE ONLY) tamsulosin 0.4 mg capsule 0.4 mg PO DAILY 01/09/22 02/16/22 History lipase 3,000-protease See Rx Instructions .ROUTE .COMPLEX 02/16/22 02/16/22 History 9,500-amylase 15,000 unit capsule, delayed rel (Creon) paclitaxel-protein bound 100 mg See Rx Instructions .ROUTE .COMPLEX 02/16/22 02/16/22 History intravenous suspension Allergies Allergy/AdvReac Type Severity Reaction Status Date / Time No Known Drug Allergies Allergy Verified 02/13/22 12:58 Review of Systems Review of Systems ROS: Yes All systems reviewed with the patient and are negative except as otherwise documented Exam Vital Signs (past 8 hours): - 02/16/22 07:31 Temperature 97.0 F L Pulse Rate 89 Respiratory Rate 16 Blood Pressure 128/76 Pulse Oximetry 98 Oxygen Delivery Method Room Air Const General: cooperative and comfortable Orientation: alert HENMT Head: normocephalic Ears: external ears normal Nose: external nose normal Face and sinus: normal facial exam Mouth: oral mucosae normal Eyes General: appearance normal, both eyes and all related structures Neck Neck: normal visual inspection Chest Chest: normal inspection of the chest Resp Effort & Inspection: normal respiratory effort Cardio Rate: regular rate GI Inspection: normal to inspection Skin General: no rashes or lesions noted and No jaundice Neuro General: patient alert and moves all extremities Cognition: normal cognition Speech: speech normal Extrem General: no pedal edema Psych Appearance: grossly normal Assessment & Plan Assessment & Plan narrative: [age] year male here for colon cancer screening. Personal history of colon polyps. Colonoscopy is pursued today. Time Spent With Patient Critical Care time: I spent a total of [] minutes of critical care time on this patient's care today; this time is exclusive of procedural time.
--- NOTE | 2022-02-16 08:02 | PM.PREOP ---
Pre-operative Note COVID-19 COVID-19 status: Negative Result date/Date tested (Pos, Neg/Pending): 02/13/22 Criteria for continued procedure: Possibility delay results in more complex future surgery or treatment Interval Note History & Physical reviewed/Exam performed by Physician: Yes Changes to H&P: No ASA Class (for procedural sedation): III
--- NOTE | 2022-02-16 08:27 | P.OP.COLON_ITS ---
Operative Date/Time/Diagnoses Date of procedure: 02/16/22 Time of procedure: 08:27 Pre-op diagnosis: Colon cancer screening. Reports a personal history of colon polyps. Post-op diagnosis: same Procedure & Clinicians Study performed: Colonoscopy Same procedure as scheduled: Yes Indications: Colon cancer screening. Reports a personal history of colon polyps. Surgeon: Doug Pabon Procedure Notes SCOAP/Timeout: Done Procedure in detail: After the risks and benefits were explained, written and verbal informed consent was obtained. The patient was brought into the procedure room and placed into the left lateral decubitus position. Please see nurse plastics fitter notes for sedation details. Digital rectal examination was accomplished. The scope was introduced into the patient and advanced under direct visualization to the cecum as identified by the appendiceal orifice and ileocecal valve. The scope was slowly withdrawn to carefully examine the mucosa for any defects or lesions. Comprehensive imaging was accomplished throughout the rectum including the dentate line. The colon was decompressed, the scope was then removed from the patient who tolerated the procedure well. Bowel prep adequate Adult colonoscope Scope withdrawal time: 9 minutes Sedation minutes: 19 Specimen(s): none sent Complications: none Impression: Grade 2 hemorrhoids were noted on direct views. Nonthrombosed. For diverticulosis mild was noted in the sigmoid region. No significant polyps mass lesions or inflammatory features identified throughout. Endoscopic diagnosis 1. Grade 2 hemorrhoids 2. Diverticulosis Post-procedure Plan for aftercare: 1. Considering remote history of unknown size and histology colon polyps, repeat colonoscopy in 5 years. Continue to follow along in primary care as before Disposition: PACU
[2022-02-16 08:30] VITALS: BP 110/61; PULSE 94; RESP 14; TEMP 36.7; O2SAT 98
[2022-02-16 08:35] VITALS: BP 112/73; PULSE 84; RESP 16; O2SAT 98
[2022-02-16 08:37] VITALS: BP 112/72; PULSE 84; RESP 16; O2SAT 98
[2022-02-16 08:40] VITALS: BP 110/70; PULSE 84; RESP 16; O2SAT 98
--- NOTE | 2022-02-16 08:47 | SUR.PHASEII ---
02/16/22 0850-Discharge instructions completed with patient by Romeo Yao RN; then given to patient.vss. met discharge criteria. denies pain, nausea. gait steady ambulating around pacu. Discharged to home with all belongings to spouses car.
== END 2022-02-16 08:52 | disposition home or self-care (01) ==
PROVIDERS: PCP Family Medicine; Referring Provider Internal Medicine Gastroenterology; Visit Provider Internal Medicine Gastroenterology
PROC: 0DJD8ZZ Inspection of Lower Intestinal Tract, Via Natural or Artificial Opening Endoscopic (ICD-10-PCS; CPT 45378; principal; 2022-02-16 08:00)
DX: Z12.11 Encounter for screening for malignant neoplasm of colon (principal); Z86.010 Personal history of colon polyps; K64.1 Second degree hemorrhoids; K57.30 Diverticulosis of large intestine without perforation or abscess without bleeding
CPT/HCPCS: G0105; J2704

== ENCOUNTER → 2022-07-30 08:02 | Outpatient (CLI) | payer MEDICARE, SELFPAY ==
--- NOTE | 2022-07-30 | DI.RAD.S_ITS ---
PROCEDURE: FL WRIST INJECTION MR/CT RT INDICATIONS: ACUTE PAIN IN WRIST COMPARISON: [facility], CR, XR WRIST 3+ VIEWS RIGHT, 07/16/2022, 9:06. TECHNIQUE: After informed consent had been obtained, the wrist was examined fluoroscopically, and a site chosen for injection of the radiocarpal compartment from a dorsal approach. Skin was prepped and draped in a sterile fashion and 1% lidocaine infiltrated from the skin down to the articular surface. A hypodermic needle was then introduced into the articular space and a modest amount of contrast medium was instilled confirming intra-articular needle tip placement. This was followed by approximately 4 mL of a dilute gadolinium solution. Needle was removed and dressing was applied. The patient experienced no complications throughout the procedure and left the fluoroscopic suite in no apparent distress. FINDINGS: A single fluoroscopic spot image demonstrates intra-articular location to injected iodinated contrast. IMPRESSION: Successful fluoroscopic-guided administration of dilute Gadolinium solution for wrist MR arthrogram. Dictated by: Sean Aviles M.D. on 07/30/2022 at 12:28 Approved by: Sean Aviles M.D. on 07/30/2022 at 12:29
--- NOTE | 2022-07-30 | DI.MRI.S_ITS ---
PROCEDURE: MR WRIST RT W CON INDICATIONS: ACUTE PAIN IN WRIST TECHNIQUE: After the administration of 3-4 mL of dilute intra-articular Gadolinium contrast into the radiocarpal compartment, coronal T1 spin echo with fat saturation and T2 fast spin echo with fat saturation, axial T1 spin echo and T2 fast spin echo with fat saturation, sagittal T1 spin echo with and without fat saturation through the wrist. COMPARISON: [facility], CR, XR WRIST 3+ VIEWS RIGHT, 07/16/2022, 9:06. [facility], RF, [place] WRIST INJECTION MR/CT RT, 07/30/2022, 8:40. FINDINGS: Image quality: Excellent. Bones and cartilage: The carpal bones are normally aligned. No evidence for avascular necrosis. Osseous edema and cystic changes are seen dorsal aspect of the distal ulna. Mild irregularity of the ulnar styloid is likely the sequela of remote prior trauma. Marginal osteophyte formation is seen at the ulnar head. There is neutral ulnar variance. Degenerative cystic changes are seen within the capitate and within the distal scaphoid adjacent to the triscaphe joint. Mild degenerative spurring at the first metacarpal base. Carpal ligaments: There is mild irregularity of the central membranous portion of the scapholunate ligament, most likely secondary to degenerative perforation. The dorsal and volar bands of the ligament appear to be intact. There is extravasation of radiocarpal contrast material into the midcarpal compartment. The no triquetral ligament appears to be intact. On sagittal images, the pisohamate ligament appears intact. Triangular fibrocartilage complex: The ulnar styloid and likely the ulnar foveal attachment of the triangular fibrocartilage are not well seen and most likely torn. There is extravasation of radiocarpal contrast material into the distal radioulnar joint. The radial attachments of the triangular fibrocartilage in the central disc are intact. Tendons and soft tissues: The carpal tunnel structures appear normal, including the median nerve. The ulnar nerve appears normal within Guyon's canal. Mild extensor carpi ulnaris tendinosis without abnormal subluxation. The remaining extensor tendon compartments demonstrate normal morphology, without pathologic tendon sheath fluid. No soft tissue ganglion cysts. IMPRESSION: 1. Full-thickness tearing of the ulnar styloid and ulnar foveal attachments of the triangular fibrocartilage with extravasation of radiocarpal contrast material into the distal radioulnar joint. 2. Suspected degenerative perforation of the central portion of the triangle fibrocartilage disc without disruption of the dorsal or volar band. Scapholunate interval is normal. Extravasation of radiocarpal contrast material into the midcarpal compartment is seen. 3. Edema and cystic changes within the distal ulna may be secondary to chronic repetitive trauma versus distal radioulnar joint degenerative changes and/or a recent contusion. 4. Mild extensor carpi ulnaris tendinosis. 5. Mild degenerative changes at the 1st carpometacarpal joint and triscaphe joint. Approved by: Sean Aviles M.D. on 07/30/2022 at 16:37
== END ==
PROVIDERS: PCP Family Medicine; Referring Provider Physician Assistant; Visit Provider Physician Assistant
DX: S66.811A Strain of other specified muscles, fascia and tendons at wrist and hand level, right hand, initial encounter (principal); M25.531 Pain in right wrist
CPT/HCPCS: 20605; 73222; 77002

== ENCOUNTER → 2024-01-15 09:22 | Outpatient (CLI) | payer MEDICARE, SELFPAY ==
[2024-01-15 09:55] LABS: Hematocrit 32.6 % (41-53); Hemoglobin 11.3 g/dL (13.5-17.5); Mean Corpuscular HGB Conc 34.7 % (30-36); Mean Corpuscular Hemoglobin 32.7 PG (26-34); Mean Corpuscular Volume 94.4 fL (80-100); Platelet Count 191 X10^3/uL (150-400); Red Blood Cell Count 3.46 X10^6/uL (4.5-5.9); Red Cell Distribution Width 16.1 % (11.6-14.8); White Blood Cell Count 5.3 X10^3/uL (4.5-11.0)
[2024-01-15 10:15] LABS: INR 1.3 (0.9-1.3); Prothrombin Time 14.6 SECONDS (9.4-12.5)
== END ==
PROVIDERS: PCP Family Medicine; Referring Provider Physician Assistant; Visit Provider Physician Assistant
DX: R18.8 Other ascites (principal)
CPT/HCPCS: 36415; 85027; 85610

== ENCOUNTER → 2024-01-17 07:30 | Outpatient (CLI) | payer MEDICARE, SELFPAY ==
--- NOTE | 2024-01-17 07:33 | DI.US.S_ITS ---
PROCEDURE: US PARACENTESIS INDICATIONS: PANCREATIC ADENOCARCINOMA - ASCITES TECHNIQUE: The indications, alternatives, benefits, risks, and complications of the procedure were explained to the patient. Written informed consent was obtained and placed in the chart. The abdomen and pelvis were examined sonographically, and an appropriate site was chosen for paracentesis. The skin was prepared and draped in the usual sterile fashion, and 1% lidocaine was infiltrated from the skin down through the peritoneal surface. A 19-gauge catheter-covered needle was then introduced into the peritoneal space, the catheter was advanced and the needle was withdrawn, and thereafter peritoneal fluid was withdrawn. The catheter was then removed and a dressing was applied. The fluid was discarded if the clinician did not order diagnostic testing of the fluid. COMPARISON: [facility], CT, CT ABDOMEN PELVIS W CON, 03/19/2021, 13:37. FINDINGS: Access site: Right lower quadrant Needle: One-Step centesis catheter with introducer needle. Fluid volume and description: Milky, 4100 cc. Fluid sent for diagnostic testing: None Medications: 1% lidocaine for local anaesthesia. Complications: None. Well tolerated by the patient. IMPRESSION: Successful ultrasound-guided therapeutic paracentesis. 4.1 L removed. Dictated by: Nik Baxter M.D. on 01/17/2024 at 9:53 Approved by: Nik Baxter M.D. on 01/17/2024 at 9:55
== END ==
LOC: US 07:32
PROVIDERS: PCP Family Medicine; Referring Provider Physician Assistant; Visit Provider Physician Assistant
DX: C25.9 Malignant neoplasm of pancreas, unspecified (principal)
CPT/HCPCS: 49083